=== PATIENT | male | born 1995 | race Caucasian/White ===

== ENCOUNTER 2019-08-14 20:30 | Inpatient (IN) | payer SELFPAY ==
[2019-08-14] VITALS (20 sets, daily range): BP systolic 99–135; BP diastolic 51–87; PULSE 67–88; RESP 12–21; TEMP 36–36.1; O2SAT 98–100; BMI 19.3
--- NOTE | 2019-08-14 20:39 | ED_ITS ---
Entered by Melody Ron, acting as scribe for Susy Cardenas Jenn Aug 14, 2019 20:30 HPI - Overdose General: Chief Complaint: Overdose Stated Complaint: OD Time Seen by Provider: 08/14/19 20:35 Source: family and EMS Mode of arrival: EMS Limitations: other (pt unresponsive ) History of Present Illness: HPI Narrative: 24 y/o male presents to the ED post overdose. Pt reprtedly took 10-20 Baclofen and and unknown amount of ETOH ( at least 5th of Vodka). Pt had seizure-like activity upon [place] [facility] Pt has been unresponsive since EMS arrived on scene. This happened after he got into an argument with his ex-girlfriend. This was intentional and appears to be an attempt to harm/end his life. MD complaint: intentional overdose Timing confirmed by: family member : Intent: other (suspected suicide attempt) How Overdose Was Discovered: family/friend present at time Context: Intentional Overdose: relationship problems Associated symptoms: lethargy and seizure Treatments Prior to Arrival: other (zofran) Review of Systems General: Reports: ROS unobtainable due to mental status and other (see HPI) Physical Exam Const: OTHER: Patient is lethargic and unresponsive HENMT: COMMON NORMALS: normocephalic, head/scalp atraumatic, external ears normal, EAC's normal, external nose normal and moist oral mucous membranes HEAD & SCALP: normal to inspection, normocephalic and atraumatic FACE & SINUS: normal facial exam and face symmetric NOSE: external nose normal and nares normal EXTERNAL EAR: Yes external ears normal EXTERNAL AUDITORY CANAL: EAC's normal MOUTH: oral and palatal mucosa normal and tongue normal Neck/C-Spine: COMMON NORMALS: full ROM, no lymphadenopathy, supple, no meningeal signs and no JVD GENERAL: Yes normal visual inspection and Yes trachea midline CERVICAL SPINE: Yes cervical ROM normal Chest: COMMONS NORMALS: inspection of chest normal and palpation of chest normal Resp: OTHER: Decreased respiratory effort. No cyanosis. Lung sounds clear. Cardio: COMMON NORMALS: no JVD, regular rate, regular rhythm, S1 normal heart sound, S2 normal heart sound, no gallops, no clicks, no murmurs and no rub JUGULAR VENOUS DISTENTION: no JVD RATE: regular rate RHYTHM: regular rhythm HEART SOUNDS: S1 normal and S2 normal GI: COMMON NORMALS: soft to palpation, non-tender, no hepatosplenomegaly and no masses INSPECTION: Yes normal to inspection PALPATION: Yes soft and Yes no hepatosplenomegaly : COMMON NORMALS: Yes no CVA tenderness BLADDER/KIDNEY EXAM: Yes no CVA tenderness Back/Pelvis: COMMON NORMALS: no CVA tenderness, thoracic and lumbar spine normal to inspection, no thoracic nor lumbar tenderness and thoraco-lumbar ROM n ormal Extremity: COMMON NORMALS: normal to inspection, full ROM, normal capillary refill, no joint enlargement, no clubbing, cyanosis or edema and no calf tenderness Neuro: RUDY COMA SCALE: document GCS findings Cantrall coma scale eye opening: Spontaneous Cantrall coma scale verbal response: None Cantrall coma scale motor response: None Cantrall coma scale total score: 6 MENINGEAL SIGNS: Yes no meningeal signs Skin: COMMON NORMALS: no rashes or lesions noted, skin turgor normal, no yocasta dice, no petechiae and no mottling GENERAL SKIN EXAM: no rashes or lesions noted and turgor normal Procedures Intubation Time out performed: Yes sedative: Etomidate Mg Given: 20 paralytic: Succinylcholine Mg Given: 150 Laryngoscope: Chanell ET Tube Size: 8 ET Tube Uncuffed: Yes Tube Secured Location: lips Tube Placement Confirmation: visualized tube passing through cords, equal breath sounds bilaterally, no breath sounds over epigastrium and confirmation by capnometry Patient Tolerated Procedure: well Intubation Complications: none Course Vital Signs: Vital signs: Vital Signs Temperature 96.8 F L 08/14/19 20:34 Pulse Rate 70 08/14/19 22:29 Respiratory Rate 14 08/14/19 22:29 Blood Pressure 108/58 08/14/19 22:29 Pulse Oximetry 98 08/14/19 22:29 MDM - Overdose MDM Narrative: Medical decision making narrative: The case was reviewed with poison control and they state the patient may have severe respiratory and neurologic depression for some time. They recommend admission to ICU. I have reviewed the case in full with Dr. Clifton who is in agreement. Lab Data: Attestation: I reviewed the patient's lab results. Labs: Lab Results 08/14/19 08/14/19 08/14/19 Range/Units 20:41 20:41 20:41 WBC 7.8 (4.0-10.0) 10^3/ uL RBC 4.84 (4.1-5.3) 10^6/u L Hgb 15.3 (11.7-16.6) g/dL Hct 44.0 (42.0-52.0) % MCV 90.9 (80-94) fL MCH 31.6 (28.0-34.0) pg MCHC 34.8 (30.0-36.0) g/dL RDW 11.1 L (12.1-15.1) % Plt Count 194 (130-400) 10^3/c mm MPV 9.3 (7.4-10.4) fL Neut % (Auto) 65.4 % Lymph % (Auto) 25.9 % [place] % (Auto) 7.1 % Eos % (Auto) 0.8 % Baso % (Auto) 0.5 % Neut # (Auto) 5.1 (1.8-7.7) 10^3/u L Lymph # (Auto) 2.0 (0.8-4.8) 10^3/u L [place] # (Auto) 0.6 (0.2-0.9) 10^3/u L Eos # (Auto) 0.1 (0.0-0.8) 10^3/u L Baso # (Auto) 0.0 (0.0-0.1) 10^3/u L Nucleated RBC % (a uto) 0 % Nucleated RBCs # 0.0 /100WBC PT 13.90 H (10.5-13.3) SECO NDS INR 1.04 (0.8-1.2) APTT 31.3 (23.9-36.7) SECO NDS Sodium 141 (136-145) mmol/L Potassium 3.9 (3.5-5.1) mmol/L Chloride 104 (98-107) mmol/L Carbon Dioxide 23 (22-29) mmol/L Anion Gap 17.9 (5-19) BUN 17 (6-20) mg/dL Creatinine 1.0 (0.7-1.2) mg/dL GFR Calculation 93.4 (90-130) mL/min Glucose 92 (74-109) mg/dL Calcium 10.0 (8.6-10.0) mg/Dl Magnesium 2.3 (1.7-2.3) mg/dL Total Bilirubin 1.1 (0.15-1.2) mg/dL AST 22 (0-40) U/L ALT 12 (0-41) U/L Alkaline Phosphata se 48 (40-130) IU/L Creatine Kinase 164 (39-308) U/L Total Protein 7.6 (6.6-8.7) g/dL Albumin 5.1 (3.5-5.2) g/dL Globulin 2.5 (1.3-4.6) g/dL Urine Color (Yellow) Urine Appearance (CLEAR) Urine pH (5-7) Ur Specific Gravit y (1.005-1.030) Urine Protein (Negative) Urine Glucose (UA) (Normal) Urine Ketones (Negative) Urine Occult Blood (Negative) Urine Nitrate (Negative) Urine Bilirubin (NEGATIVE) Urine Urobilinogen (Negative) mg/dL Ur Leukocyte Magdalena ase (Negative) Urine RBC (0-2) /hpf Urine WBC (0-5) /hpf Ur Squamous Epith Cells (0-5) Ur Transition Epit h Cell /hpf Urine Bacteria (NONE) Urine Mucus Salicylates < 0.3 L (3-10) mg/dL Urine Opiates Scre en (Negative) ng/mL Acetaminophen < 5.0 L (10-30) ug/mL Ur Barbiturates Sc reen (Negative) ng/mL Ur Phencyclidine S crn (Negative) ng/mL Ur Amphetamines Sc reen (Negative) ng/mL U Benzodiazepines Scrn (Negative) ng/mL Urine Cocaine Scre en (Negative) ng/mL U Marijuana (THC) Screen (Negative) ng/mL Ethyl Alcohol 171 H (0-10) mg/dL 08/14/19 08/14/19 Range/Units 21:01 21:01 WBC (4.0-10.0) 10^3/ uL RBC (4.1-5.3) 10^6/u L Hgb (11.7-16.6) g/dL Hct (42.0-52.0) % MCV (80-94) fL MCH (28.0-34.0) pg MCHC (30.0-36.0) g/dL RDW (12.1-15.1) % Plt Count (130-400) 10^3/c mm MPV (7.4-10.4) fL Neut % (Auto) % Lymph % (Auto) % [place] % (Auto) % Eos % (Auto) % Baso % (Auto) % Neut # (Auto) (1.8-7.7) 10^3/u L Lymph # (Auto) (0.8-4.8) 10^3/u L [place] # (Auto) (0.2-0.9) 10^3/u L Eos # (Auto) (0.0-0.8) 10^3/u L Baso # (Auto) (0.0-0.1) 10^3/u L Nucleated RBC % (a uto) % Nucleated RBCs # /100WBC PT (10.5-13.3) SECO NDS INR (0.8-1.2) APTT (23.9-36.7) SECO NDS Sodium (136-145) mmol/L Potassium (3.5-5.1) mmol/L Chloride (98-107) mmol/L Carbon Dioxide (22-29) mmol/L Anion Gap (5-19) BUN (6-20) mg/dL Creatinine (0.7-1.2) mg/dL GFR Calculation (90-130) mL/min Glucose (74-109) mg/dL Calcium (8.6-10.0) mg/Dl Magnesium (1.7-2.3) mg/dL Total Bilirubin (0.15-1.2) mg/dL AST (0-40) U/L ALT (0-41) U/L Alkaline Phosphata se (40-130) IU/L Creatine Kinase (39-308) U/L Total Protein (6.6-8.7) g/dL Albumin (3.5-5.2) g/dL Globulin (1.3-4.6) g/dL Urine Color Yellow (Yellow) Urine Appearance Clear (CLEAR) Urine pH 5 (5-7) Ur Specific Gravit y 1.015 (1.005-1.030) Urine Protein Neg (Negative) Urine Glucose (UA) Norm (Normal) Urine Ketones 1+ H (Negative) Urine Occult Blood Neg (Negative) Urine Nitrate Negative (Negative) Urine Bilirubin Neg (NEGATIVE) Urine Urobilinogen Norm (Negative) mg/dL Ur Leukocyte Magdalena ase Negative (Negative) Urine RBC None (0-2) /hpf Urine WBC Rare (0-5) /hpf Ur Squamous Epith Cells None (0-5) Ur Transition Epit h Cell 0-4 /hpf Urine Bacteria Trace (NONE) Urine Mucus 1+ Salicylates (3-10) mg/dL Urine Opiates Scre en Negative (Negative) ng/mL Acetaminophen (10-30) ug/mL Ur Barbiturates Sc reen Negative (Negative) ng/mL Ur Phencyclidine S crn Negative (Negative) ng/mL Ur Amphetamines Sc reen Negative (Negative) ng/mL U Benzodiazepines Scrn Negative (Negative) ng/mL Urine Cocaine Scre en Negative (Negative) ng/mL U Marijuana (THC) Screen Negative (Negative) ng/mL Ethyl Alcohol (0-10) mg/dL Imaging Data^: CXR: My impression: No acute infiltrates or pneumothorax. ET tube and NG tube with appropriate placement. Critical Care Time Critical Care Time: Critical Care Time: Yes Total Critical Care Time: 30 Attestation: Critical care time is exclusive of billable procedures. Critical care time included consultation with inpatient admission team, poison control and with family. Critical care time also included evaluating and making decisions from laboratory and vital sign information. Discharge Plan Discharge Patient Disposition: Admitted As Inpatient Admit Provider: Rinku Nguyen Condition: Stable Discharge Date/Time: 08/14/19 22:30 Coding Level of Care Code ED Boat Hop for Oumar Cuevas The documentation recorded by the Asaf dale Ashley, accurately reflects the service I personally performed and the decisions made by Theresa cruz Eli N Aug 14, 2019 20:30
--- NOTE | 2019-08-14 20:47 | XR_ITS ---
WS: [id number] CHEST XRAY TECHNIQUE: Portable chest. CLINICAL INFORMATION: cough COMPARISON: None. FINDINGS: Endotracheal tube with tip 4.2 cm above the astrid. Enteric tube tip in stomach. Heart: Normal cardiac silhouette. Lungs: Lungs are clear. No consolidation or pleural effusion. Bones: Normal visualized bony structures. XR/XR chest 1V portable [id number] IMPRESSION: 1. Endotracheal tube with tip 4.2 cm above the astrid. 2. Enteric tube with tip in stomach. 3. No acute pulmonary infiltrates.
--- NOTE | 2019-08-14 20:47 | CTR_ITS ---
PROCEDURE INFORMATION: Exam: CT Head Without Contrast Exam date and time: 08/14/2019 8:55 PM Age: 24 years old Clinical indication: Other: Od; Additional info: Spears/ams TECHNIQUE: Imaging protocol: Computed tomography of the head without contrast. Total DLP: 870.27 mGy-cm Radiation optimization: All CT scans at this facility use at least one of these dose optimization techniques: automated exposure control; mA and/or kV adjustment per patient size (includes targeted exams where dose is matched to clinical indication); or iterative reconstruction. COMPARISON: CT head wo con* [id number] 01/22/2016 7:23 PM FINDINGS: Brain: Normal. No hemorrhage. Unremarkable white matter. No mass effect. Ventricles: Normal. No ventriculomegaly. Bones/joints: Unremarkable. No acute fracture. Sinuses: Visualized sinuses are unremarkable. No fluid levels. Mastoid air cells: Visualized mastoid air cells are well aerated. Soft tissues: Unremarkable. CT/CT head wo con* [id number] IMPRESSION: Negative for intracranial hemorrhage or mass effect. Radiation Dose CTDIVOL = (mGy): DLP = 870.27 (mGy-cm)
[2019-08-14] MEDS: succinylcholine 20 mg/mL SDV 10mL 150 MG IV (20:52)
[2019-08-14] MEDS: LORazepam 2 mg/mL INJ 1 mL (20:54)
[2019-08-14] MEDS: sodium chloride 0.9% 1,000 ML 999 ML IV ×2 (20:55→22:22)
[2019-08-14] MEDS: propofol 1,000 MG/100 ML INJ 5 MG (20:55)
[2019-08-14 21:05] LABS: Basophils % 0.5 %; Eosinophils # 0.1 10^3/uL (0.0-0.8); Eosinophils % 0.8 %; Hemoglobin 15.3 g/dL (11.7-16.6); Lymphocytes % 25.9 %; Mean Corpuscular HGB Conc 34.8 g/dL (30.0-36.0); Mean Corpuscular Hemoglobin 31.6 pg (28.0-34.0); Mean Corpuscular Volume 90.9 fL (80-94); Mean Platelet Volume 9.3 fL (7.4-10.4); Monocytes # 0.6 10^3/uL (0.2-0.9); Monocytes % 7.1 %; Neutrophils # 5.1 10^3/uL (1.8-7.7); Neutrophils % 65.4 %; Nucleated Red Blood Cells % 0 %; Platelet Count 194 10^3/cmm (130-400); Red Blood Count 4.84 10^6/uL (4.1-5.3); Red Cell Distribution Width 11.1 % (12.1-15.1); White Blood Count 7.8 10^3/uL (4.0-10.0)
[2019-08-14 21:14] LABS: INR 1.04 (0.8-1.2)
[2019-08-14 21:15] LABS: Alanine Aminotransferase 12 U/L (0-41); Albumin Level 5.1 g/dL (3.5-5.2); Alcohol Level 171 mg/dL (0-10); Alkaline Phosphatase 48 IU/L (40-130); Anion Gap 17.9 (5-19); Blood Urea Nitrogen 17 mg/dL (6-20); Carbon Dioxide 23 mmol/L (22-29); Chloride 104 mmol/L (98-107); Creatine Phosphokinase 164 U/L (39-308); Globulin 2.5 g/dL (1.3-4.6); Glomerular Filtration Rate 93.4 mL/min (90-130); Glucose 92 mg/dL (74-109); Magnesium 2.3 mg/dL (1.7-2.3); Partial Thromboplastin Time 31.3 SECONDS (23.9-36.7); Potassium 3.9 mmol/L (3.5-5.1); Sodium 141 mmol/L (136-145); Total Bilirubin 1.1 mg/dL (0.15-1.2); Total Protein 7.6 g/dL (6.6-8.7)
[2019-08-14 21:20] LABS: Acetaminophen < 5.0 ug/mL (10-30); Salicylate < 0.3 mg/dL (3-10)
[2019-08-14 21:21] LABS: Aspartate Amino Transferase 22 U/L (0-40)
[2019-08-14 21:47] LABS: Blood Urine Neg (Negative); Glucose Urine UA Norm (Normal); Ketones Urine 1+ (Negative); Protein Urine Neg (Negative); Specific Gravity, Urine 1.015 (1.005-1.030); Urine Appearance Clear (CLEAR); Urine Color Yellow (Yellow); pH Urine 5 (5-7)
[2019-08-14 21:48] LABS: Add Urine Culture? No; Bacteria Urine TRACE; Bilirubin Urine Neg (NEGATIVE); Leukocyte Esterase Urine Negative (Negative); Mucus Urine 1+; Nitrate Urine Negative (Negative); Transitional Epi Cells Urine 0-4 /hpf; Urobilinogen Urine Norm (Negative); WBC Urine RARE /hpf (0-5)
[2019-08-14 21:57] LABS: Amphetamines Screen Urine Negative (Negative); Barbiturates Screen Urine Negative (Negative); Benzodiazepines Screen Urine Negative (Negative); Cocaine Screen Urine Negative (Negative); Opiate Screen Urine Negative (Negative); PCP Screen Urine Negative (Negative); THC Screen Urine Negative (Negative)
--- NOTE | 2019-08-14 23:46 | PM.HP ---
Providers/Chief Complaint Admitting Physician: Rinku Nguyen MD Chief Complaint: OD, 96 HR HOLD History of Present Illness Benito Gr is a 24 year old male who does not carry any significant past medical history was brought in by EMS, was intubated in ER because of his GCS of 6. 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 That time EMS was called. Mother is stating that he was never suicidal, she is not sure if he was depressed, however his grandmother has few weeks ago and on social media he has been posting notes about his difficult life. He also posted a picture of vodka on [employer]. In ER he was intubated, alcohol level 171, baclofen tablets were counted by the family 20 are missing from the bottle it was 10 mg baclofen tablet, poison control recommended conservative management for now Review of Systems General: Reports: ROS unobtainable due to endotracheal tube Medications/Allergies Home Medications Medication Instructions Recorded Confirmed Last Taken Type No Known Home Medications 08/14/19 08/14/19 Unknown History Allergies Allergy/AdvReac Type Severity Reaction Status Date / Time No Known Allergies Allergy Verified 08/14/19 21:24 PFSH Acute PFSH: Statuses (acute, chronic, etc) shown below reflect problem list status as previously entered and may not be historically accurate Medical History (Updated 08/14/19 @ 23:54 by Rinku Nguyen MD) Distal radial fracture (Acute) No pertinent past medical history (Acute) Surgical History (Updated 08/14/19 @ 23:51 by Rinku Nguyen MD) H/O adenoidectomy (Acute) History of tonsillectomy (Acute) Family History (Updated 08/14/19 @ 23:51 by Rinku Nguyen MD) Denies family history of CAD (coronary artery disease) Bleeding disorder Cancer Stroke Social History (Updated 08/14/19 @ 23:52 by Rinku Nguyen MD) Smoking and tobacco status: current some day smoker Alcohol intake: current Alcohol use comment: Drinks vodka Substance/Drug Use: never Housing: House Vitals/I&O/Wt Last Vital Signs Temp 97.0 F L 08/14/19 22:30 Pulse 67 08/14/19 23:15 Resp 14 08/14/19 23:16 BP 105/52 08/14/19 23:15 Pulse Ox 98 08/14/19 23:15 08/14/19 08/14/19 08/15/19 14:59 22:59 06:59 Intake Total 1000 / 1000 Balance 1000 / 1000 Weight last 48 hrs Weight 61.235 kg Physical Exam Narrative: EXAM NARRATIVE: Patient is intubated and sedated with propofol and fentanyl CMV ventilator PEEP of 8, tidal volume 450, FiO2 40% Skin exam is not showing any signs of ischemia gangrene or ulcer No signs of edema or heart failure S1-S2 no murmur or JVD Abdomen soft, bowel sounds present Neurological exam not able to be obtained Lungs have assisted breath sounds bilaterally Pupils are pinpoint nonresponsive Montez catheter draining clear yellow urine No gross abnormality of extremities Urinary Catheter Management^: Montez Latex Free: Cath Placed During This Visit: no Montez Latex: Cath Placed During This Visit: no Data : 08/14/19 20:41 08/14/19 20:41 A&P Assessment and plan (1) Respiratory failure: Status: Acute Code(s): J96.90 - Respiratory failure, unspecified, unspecified whether with hypoxia or hypercapnia (2) Unresponsive: Status: Acute Code(s): R41.89 - Other symptoms and signs involving cognitive functions and awareness (3) Depression: Status: Acute Code(s): F32.9 - Major depressive disorder, single episode, unspecified (4) Alcohol abuse: Status: Acute Code(s): F10.10 - Alcohol abuse, uncomplicated (5) Drug overdose: Status: Acute Code(s): T50.901A - Poisoning by unspecified drugs, medicaments and biological substances, accidental (unintentional), initial encounter Additional A&P Information Respiratory failure acute in onset secondary to drug overdose with concomitant use of alcohol At this point we are not sure whether it was an suicidal attempt or not Conservative management Patient has taken baclofen along vodka Poison control recommended conservative management Currently intubated and sedated No electrolyte abnormalities [facility] protocol Weaning trial in the morning 96-hour hold for possible suicidal attempt He will need psych evaluation once he is stable DVT prophylaxis: Lovenox GI prophylaxis: Protonix Full code Attestations Medical Necessity Statement*: Anticipating stay to cross more than 2 midnights because of drug overdose and current respiratory failure he is currently intubated needs ICU care Time Spent in Patient Care: (>than 50% of time spent in counselling and/or direct pt care on unit). 50 Coding Level of Care Code Acute Bar And Filler Assembler for Oumar Cuevas Diagnoses Respiratory failure J96.90 Unresponsive R41.89 Depression F32.9 Alcohol abuse F10.10 Drug overdose T50.901A
[2019-08-15] VITALS (29 sets, daily range): BP systolic 102–119; BP diastolic 46–76; PULSE 71–101; RESP 14–20; TEMP 36.4–37.5; O2SAT 96–100
[2019-08-15 00:23] LABS: ABG PCO2 40.8 mmHg (35-45); Arterial Blood Gas Hematocrit 45.3 % (42-52); Base Excess ABG -6.4 mmol/L (-2.0-2.0); Blood Gas Sample Site Brachial, left; Blood Gas Sample Type Arterial; Blood Gas Tidal Volume 0.45; HCO3 ABG 19.8 mmol/L (22-26); Oxygen Device VENT
[2019-08-15] MEDS: enoxaparin 40 mg/0.4 mL Syringe SUBCUT ×2 (00:32→23:54)
[2019-08-15 04:13] LABS: Alanine Aminotransferase 18 U/L (0-41); Albumin Level 4.2 g/dL (3.5-5.2); Alkaline Phosphatase 46 IU/L (40-130); Anion Gap 22.4 (5-19); Aspartate Amino Transferase 28 U/L (0-40); Blood Urea Nitrogen 23 mg/dL (6-20); Calcium 9.1 mg/Dl (8.6-10.0); Carbon Dioxide 15 mmol/L (22-29); Chloride 107 mmol/L (98-107); Globulin 2.1 g/dL (1.3-4.6); Glomerular Filtration Rate 120.9 mL/min (90-130); Glucose 58 mg/dL (74-109); Potassium 4.4 mmol/L (3.5-5.1); Sodium 140 mmol/L (136-145); Total Bilirubin 1.4 mg/dL (0.15-1.2); Total Protein 6.3 g/dL (6.6-8.7)
[2019-08-15 04:39] LABS: Hematocrit 41.2 % (42.0-52.0); Hemoglobin 13.6 g/dL (11.7-16.6); Red Blood Count 4.28 10^6/uL (4.1-5.3); White Blood Count 10.3 10^3/uL (4.0-10.0)
[2019-08-15 04:40] LABS: Mean Corpuscular Hemoglobin 31.8 pg (28.0-34.0); Mean Corpuscular Volume 96.3 fL (80-94)
[2019-08-15 04:41] LABS: Mean Platelet Volume 9.6 fL (7.4-10.4); Platelet Count 155 10^3/cmm (130-400); Red Cell Distribution Width 11.4 % (12.1-15.1)
[2019-08-15 04:42] LABS: Basophils % 0.2 %; Eosinophils % 0.1 %; Lymphocytes # 0.8 10^3/uL (0.8-4.8); Lymphocytes % 7.5 %; Monocytes # 0.7 10^3/uL (0.2-0.9); Monocytes % 7.2 %; Neutrophils # 8.8 10^3/uL (1.8-7.7); Neutrophils % 84.7 %
[2019-08-15 04:43] LABS: Nucleated Red Blood Cells % 0 %
[2019-08-15 05:17] LABS: Glucose Point of Care 49 mg/dL (70-110)
[2019-08-15] MEDS: dextrose 50% syringe 50 mL IVP (05:18)
[2019-08-15 05:41] LABS: Glucose Point of Care 150 mg/dL (70-110)
[2019-08-15 05:52] LABS: ABG PCO2 43.5 mmHg (35-45); ABG PH Result 7.25 (7.35-7.45); Base Excess ABG -7.8 mmol/L (-2.0-2.0)
[2019-08-15 05:53] LABS: Arterial Blood Gas Hematocrit 43.1 % (42-52); Blood Gas Vent Mode cmv; HCO3 ABG 19.2 mmol/L (22-26)
[2019-08-15 06:20] LABS: Blood Gas Allen Test Pos; Blood Gas Sample Site Heel, right; Blood Gas Sample Type Arterial; Blood Gas Tidal Volume 0.45; Oxygen Device VENT
[2019-08-15] MEDS: propofol 1,000 MG/100 ML INJ 11 MG IV (07:40)
[2019-08-15] MEDS: chlordiazePOXIDE 10 mg Capsule PO ×3 (08:03→19:43)
[2019-08-15] MEDS: multivitamin therapeutic Tablet 1 TAB PO (08:03)
[2019-08-15] MEDS: folic acid 1 mg Tablet PO (08:03)
[2019-08-15] MEDS: pantoprazole 40 mg SDV IVP (08:04)
[2019-08-15] MEDS: thiamine 100 mg Tablet PO (08:05)
--- NOTE | 2019-08-15 09:50 | PC.CHAP ---
Pastoral Care Encounter/Spiritual Assessment Type of Contact [] Declined tooling engineering tech visit [] Patient/Family/Request visit [] Outpatient visit [] Follow-up visit [] Physician referral [] Code/Alert [] Routine visit [] Staff referral [] Actively dying [] Patient sleeping [] Family support [] [] Out of room [] Palliative care [] [] Receiving care in room [] Pre-surgical visit [] Trauma [] Long length of stay [] ICU visit [] Other: Relational/Emotional Strength [] Patient feels connected with others/family/visitors/staff [] Distress [] Loneliness/isolation [] Abandonment Spirituality of Patient [] Person of Ame [] Attends Sikh of their Ame [] Believes in Prayer [] Reads Bible or Catholic materials [] There are Spiritual issues to be addressed Acid Patroller Interventions [] Prayer [] Active listening [] Non-anxious presence [] Spiritual/emotional support [] Crisis/trauma care [] Spiritual counseling [] Bereavement support [] Provided bereavement packet [] Provided Bible/devotional materials [] Provided toy/stuffed animal, coloring book to patient or family member [] Completed spiritual assessment [] Provided Communion [] Anointing/[place] [] Salvation [] Other: Impact on Illness or Injury [] Angry [] Fearful [] Anxious [] Often cries [] Exhaustion [] Unable to work [] Unable to attend tenriism [] Unable to walk/stand [] Unable to read [] Unable to drive [] Unable to eat/drink [] Unable to sleep [] Unable to be with family [x] Other: Patient is in induced sleep. Summary Letona entered room with Patient, and prayed with him while he slept. Time spent with patient 5min
--- NOTE | 2019-08-15 11:41 | P.PN_ITS ---
Vitals/I&O/Wt Last Vital Signs Temp 99.4 F 08/15/19 10:00 Pulse 88 08/15/19 11:00 Resp 14 08/15/19 10:57 BP 119/59 08/15/19 11:00 Pulse Ox 100 08/15/19 11:00 08/14/19 08/15/19 08/15/19 22:59 06:59 14:59 Intake Total 1000 / 1000 110 / 1110 20.167 / 20.167 Output Total 100 / 100 Balance 1000 / 1000 10 / 1010 20.167 / 20.167 Weight last 48 hrs Weight 61.235 kg Physical Exam 2 Const: OTHER: Patient is currently intubated, on minimal sedation, does respond to stimulus, does withdraw from pain, does spontaneously open his eyes HENMT: COMMON NORMALS: normocephalic HEAD & SCALP: normocephalic Eye: COMMON NORMALS: PERRL PUPIL: Yes PERRL Neck/C-Spine: COMMON NORMALS: no lymphadenopathy and no JVD Lymph: LYMPHATIC: no lymphadenopathy noted Chest: COMMONS NORMALS: inspection of chest normal Resp: COMMON NORMALS: clear to auscultation bilaterally AUSCULTATION: clear to auscultation bilaterally Cardio: COMMON NORMALS: no JVD, regular rate, regular rhythm, S1 normal heart sound and S2 normal heart sound RATE: regular rate RHYTHM: regular rhythm HEART SOUNDS: S1 normal and S2 normal GI: COMMON NORMALS: normal to inspection, nondistended, normoactive bowel sounds, soft to palpation, non-tender and no hepatosplenomegaly PALPATION: Yes soft and Yes no hepatosplenomegaly Extremity: COMMON NORMALS: normal to inspection, full ROM, normal capillary refill and no clubbing, cyanosis or edema Neuro: OTHER: Currently intubated, sedated, does respond to painful stimuli, does withdraw, does open eyes to to stimulus Urinary Catheter Management^: Montez Latex Free: Cath Placed During This Visit: no Montez Latex: Cath Placed During This Visit: no Data : 08/15/19 03:26 08/15/19 03:26 A&P Assessment and plan (1) Respiratory failure: -Secondary to alcohol and baclofen - Poison control has already been contacted -Patient does have a lot of bilious secretions from OG tube, possible aspiration, no fevers, no white blood cell count Plan: -Continue ventilation, minimize PEEP, minimize FiO2 -Lovenox for DVT prophylaxis -Protonix for GI prophylaxis -Continue propofol -Librium to prevent alcohol withdrawal -Zosyn for possible aspiration pneumonia -Continue telemetry monitoring Status: Acute Code(s): J96.90 - Respiratory failure, unspecified, unspecified whether with hypoxia or hypercapnia (2) Unresponsive: Status: Acute Code(s): R41.89 - Other symptoms and signs involving cognitive functions and awareness (3) Depression: -96-hour hold for intentional drug overdose Status: Acute Code(s): F32.9 - Major depressive disorder, single episode, unspecified (4) Alcohol abuse: Status: Acute Code(s): F10.10 - Alcohol abuse, uncomplicated (5) Drug overdose: Status: Acute Code(s): T50.901A - Poisoning by unspecified drugs, medicaments and biological substances, accidental (unintentional), initial encounter Additional A&P Information R Full code Attestations Medical Necessity Statement*: She requires continued hospitalization, for intentional drug overdose, alcohol overdose, possible suicide attempt Coding Level of Care Code Acute Director Of Software Development for Oumar Cuevas Diagnoses Respiratory failure J96.90 Unresponsive R41.89 Depression F32.9 Alcohol abuse F10.10 Drug overdose T50.901A
[2019-08-15] MEDS: sodium chloride 0.9% 1,000 ML 50 ML IV (12:30)
[2019-08-15] MEDS: piperacillin-tazobactam 3.375 GM in sodium chloride 0.9% (plus) 50 ML IV ×2 (14:37→21:05)
--- NOTE | 2019-08-15 17:12 | PC.RESP ---
PT EXBUTATED TO R/A. SAT 97% HR 104 0 RESPIRATORY DISTRES NOTED.
[2019-08-16] VITALS (31 sets, daily range): BP systolic 107–128; BP diastolic 50–88; PULSE 54–88; RESP 14–25; TEMP 37.2; O2SAT 97–100
[2019-08-16] MEDS: chlordiazePOXIDE 10 mg Capsule PO (02:09)
[2019-08-16 04:46] LABS: Basophils % 0.2 %; Eosinophils # 0.1 10^3/uL (0.0-0.8); Eosinophils % 0.9 %; Hemoglobin 13.4 g/dL (11.7-16.6); Lymphocytes # 1.2 10^3/uL (0.8-4.8); Lymphocytes % 13.5 %; Mean Corpuscular HGB Conc 34.4 g/dL (30.0-36.0); Mean Corpuscular Hemoglobin 31.8 pg (28.0-34.0); Mean Corpuscular Volume 92.4 fL (80-94); Mean Platelet Volume 9.8 fL (7.4-10.4); Monocytes # 0.8 10^3/uL (0.2-0.9); Monocytes % 9.6 %; Neutrophils # 6.5 10^3/uL (1.8-7.7); Neutrophils % 75.6 %; Nucleated Red Blood Cells % 0 %; Platelet Count 136 10^3/cmm (130-400); Red Blood Count 4.22 10^6/uL (4.1-5.3); Red Cell Distribution Width 10.9 % (12.1-15.1); White Blood Count 8.7 10^3/uL (4.0-10.0)
[2019-08-16 04:59] LABS: Alanine Aminotransferase 19 U/L (0-41); Albumin Level 4.1 g/dL (3.5-5.2); Alkaline Phosphatase 47 IU/L (40-130); Anion Gap 18.1 (5-19); Aspartate Amino Transferase 24 U/L (0-40); Blood Urea Nitrogen 14 mg/dL (6-20); C Reactive Protein 36.7 mg/L (0.0-4.9); Carbon Dioxide 20 mmol/L (22-29); Chloride 104 mmol/L (98-107); Globulin 2.1 g/dL (1.3-4.6); Glomerular Filtration Rate 105.5 mL/min (90-130); Glucose 75 mg/dL (74-109); Magnesium 2.2 mg/dL (1.7-2.3); Phosphorus 2.6 mg/dL (2.5-4.5); Potassium 4.1 mmol/L (3.5-5.1); Sodium 138 mmol/L (136-145); Total Bilirubin 1.9 mg/dL (0.15-1.2); Total Protein 6.2 g/dL (6.6-8.7)
[2019-08-16 05:01] LABS: ABG PCO2 39.1 mmHg (35-45); ABG PH Result 7.34 (7.35-7.45); Arterial Blood Gas Hematocrit 43.2 % (42-52); Base Excess ABG -4.3 mmol/L (-2.0-2.0); Blood Gas Sample Site Brachial, left; Blood Gas Sample Type Arterial; HCO3 ABG 21.1 mmol/L (22-26); Oxygen Device ROOM AIR; PO2 ABG 89.4 mmHg (80.0-100.0)
[2019-08-16 05:16] LABS: Procalcitonin 2.77 ng/mL (0-0.8)
[2019-08-16] MEDS: piperacillin-tazobactam 3.375 GM in sodium chloride 0.9% (plus) 50 ML IV (06:03)
--- NOTE | 2019-08-16 06:13 | PC.NURSE ---
SHIFT SUMMARY PT HAS BEEN RESTING WITH EYES CLOSED, RESPIRATIONS EVEN AND UNLABORED. PT REMAINS A LITTLE CONFUSED ON WHAT DAY AND WHERE HE IS. PT HAS HAD ADEQUATE URINE OUTPUT. PT LUNGS REMAIN CLEAR/DIMINISHED. PT HAS NOT SCORED ANY ON CIWA, AND PT HAS NOT HAD ANY WITHDRAWAL SYMPTOMS OR OUTBURSTS. PT HAS BEEN AFEBRILE.
--- NOTE | 2019-08-16 07:00 | XRR_ITS ---
PROCEDURE INFORMATION: Exam: XR Chest, 1 View Exam date and time: 08/16/2019 5:53 AM Age: 24 years old Clinical indication: Shortness of breath; Additional info: SOB TECHNIQUE: Imaging protocol: XR of the chest Views: 1 view. COMPARISON: CR XR chest 1V portable [id number] 08/14/2019 8:53 PM FINDINGS: Tubes, catheters and devices: Interval removal of previously visualized endotracheal and feeding tubes. Lungs: Hyperinflation and mild interstitial prominence. No acute airspace disease. Pleural space: No pleural effusion. Heart/Mediastinum: Normal configuration of the heart. Bones/joints: Unremarkable. XR/XR chest 1V portable [id number] IMPRESSION: Hyperinflation and mild interstitial prominence.
[2019-08-16] MEDS: thiamine 100 mg Tablet PO (08:37)
[2019-08-16] MEDS: multivitamin therapeutic Tablet 1 TAB PO (08:37)
[2019-08-16] MEDS: folic acid 1 mg Tablet PO (08:37)
--- NOTE | 2019-08-16 12:19 | PM.PSYCN ---
Providers/Reason for Consult Consulting Physican/Specialty*: Ron Ely MD Reason for Consult*: assess for imminent risk Attending Physician: Glen Patten MD Psych Consult HPI History of Present Illness The psychiatry service has been consult in to request an assessment regarding potential dangerousness to self or others by the patient who was brought in unresponsive. There is also the question of recommendations for further treatment after discharge. Brief history:Benito Gr is a 24 year old male who does not carry any significant past medical history was brought in by EMS, was intubated in ER because of his GCS of 6. 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 That time EMS was called. Mother is stating that he was never suicidal, she is not sure if he was depressed, however his grandmother has few weeks ago and on social media he has been posting notes about his difficult life. He also posted a picture of vodka on [employer] and states the problems began in May 2019 when he was assessed by a local physician for back pain. He was given a muscle relaxer to be used up to 4 times daily for his back pain. He says that typically, he uses it twice a day. However it is quite variable. He does not really like the medication because it makes him tired. This is specifically important because he operates heavy machinery at the [employer]. Patient admits that his memory is hazy for events leading up to his hospitalization. He said that he went home from work and he had taken one of his muscle relaxers area however he admits that sometimes he takes more than one. He cannot recall how many talk. However he specifically states that no time was he having any intent to harm himself or others. He was despondent over the recent of grandmother. There apparently was another of an older brother several years earlier. He had a bottle of vodka and decided to drink a little. That is the last thing he remembers. He denies any time having suicidal ideation. He denies symptoms of Depression. He has good hedonic capacity. Work is going well. He denies the presence of auditory of visual hallucinations. With regard to his alcohol intake, he does not feel that he has a problem. Was somewhat guarded and answers to questions became much more approximate in their form. He says I'm a fan of hard liquor. There is no history of legal problems or DUIs. He does not feel his alcohol has impaired his ability at work or caused him problems with employment or financial issues. No one is telling me him that he drinks too much. Other than this hospitalization, he does not feel that it causes him any medical problems. He did not feel it necessary that he go into a alcohol substance abuse program. Past psychiatric history: No history of admissions. He has never seen a psychiatrist before. He has never been in any mental health treatment before Family psychiatric history: Patient reports that no one within the family is being treated for mental health problems. Meds Current Medications: Current Medications Generic Name Dose Route Start Last Admin Trade Name Adam PRN Reason Stop Dose Admin Enoxaparin Sodium 40 mg 08/14/19 23:45 08/15/19 23:54 Lovenox SUBCUT 40 mg Q24H LAYLA Administration Folic Acid 1 mg 08/15/19 09:00 08/16/19 08:37 Folic Acid PO 1 mg DAILY LAYLA Administration Piperacillin Sod/T azobactam 50 mls @ 12.5 mls /hr 08/15/19 13:00 08/16/19 06:03 Sod 3.375 gm/ So dium Chloride IV 12.5 mls/hr Q8H LAYLA Administration Protocol Multivitamins Ther apeutic 1 tab 08/15/19 09:00 08/16/19 08:37 Multivitamin Tab PO 1 tab DAILY LAYLA Administration Thiamine Mononitra te 100 mg 08/15/19 09:00 08/16/19 08:37 Vitamin B-1 PO 100 mg DAILY LAYLA Administration PFSH NPU PFSH: Statuses (acute, chronic, etc) shown below reflect problem list status as previously entered and may not be historically accurate Medical History (Updated 08/14/19 @ 23:54 by Rinku Nguyen MD) Distal radial fracture (Acute) No pertinent past medical history (Acute) Surgical History (Updated 08/14/19 @ 23:51 by Rinku Nguyen MD) H/O adenoidectomy (Acute) History of tonsillectomy (Acute) Family History (Updated 08/14/19 @ 23:51 by Rinku Nguyen MD) Denies family history of CAD (coronary artery disease) Bleeding disorder Cancer Stroke Social History (Updated 08/14/19 @ 23:52 by Rinku Nguyen MD) Smoking and tobacco status: current some day smoker Alcohol intake: current Alcohol use comment: Drinks vodka Substance/Drug Use: never Housing: House Mental Status Exam MSE Comments: Discharge Mental Status Exam: Appearance: hygiene is good; no gross neurological deficits., gait is Not assessed; AIMS=0 Speech: Speech is of normal rate and rhythm and easily understood. Thought processes: Thought processes are abstract. Judgment is adequate for safety. Associations: intact Psychotic processes: There is no indication of guarding or paranoia. There is no attention to the internal stimuli. Auditory and visual hallucinations are denied. Judgment: Insight is fair. Problem solving skills are adequate for safety. Orientation: The patient is oriented to person, place time and situation. Memory: no deficits noted in immediate, intermediate, or remote spheres. Attention: The patient is alert and interpersonally engaged. Language: Verbalizations are coherent. Fund of knowledge: Fund of knowledge is adequate. Affect/Mood: Affect is consistent with a euthymic mood. denied suicidal ideation Affective range is appropriate. Psychosis: perception unimpaired except through cognitive distortion; reality testing intact. Vitals/I&O/Wt Last Vital Signs Temp 99.0 F 08/16/19 06:00 Pulse 82 08/16/19 12:15 Resp 16 08/16/19 12:15 BP 118/63 08/16/19 12:15 Pulse Ox 98 08/16/19 12:15 08/15/19 08/16/19 08/16/19 22:59 06:59 14:59 Intake Total 150 / 280.167 290 / 570.167 550 / 550 Output Total 700 / 700 400 / 1100 1200 / 1200 Balance -550 / -419.833 -110 / -529.833 -650 / -650 Weight last 48 hrs Weight 61.235 kg Physical Exam Urinary Catheter Management^: Montez Latex Free: Cath Placed During This Visit: no Montez Latex: Cath Placed During This Visit: no Data NPU Labs: Other Labs: Laboratory Tests 08/14/19 08/14/19 20:41 21:01 Urine Opiates Scre en Negative Ur Barbiturates Sc reen Negative Ur Phencyclidine S crn Negative Ur Amphetamines Sc reen Negative U Benzodiazepines Scrn Negative Urine Cocaine Scre en Negative U Marijuana (THC) Screen Negative Ethyl Alcohol 171 H Micro: Micro: Microbiology 08/14/19 23:43 Gram Stain - Final Sputum - Endotrac heal Tube Aspirate Sputum Culture - P reliminary Microbiology 08/14/19 23:43 Sputum - Endotracheal Tube Aspirate Gram Stain - Final 08/14/19 23:43 Sputum - Endotracheal Tube Aspirate Sputum Culture - Preliminary A&P Additional A&P Information Diagnosis: Alcohol intoxication?resolved Alcohol abuse disorder At this time, there is not an indication of Imminent risk to self or others. This was specifically not a suicide attempt. Patient is not clinically depressed. However he likely does have an alcohol abuse disorder. We reviewed availability of services at the [facility]. He said that he would make use of them if he felt that they were necessary. Attestations NPU Medical Necessity Statement*: Continuation of medical care is left to the discretion of the physician of record Coding Level of Care Code Acute Duct Cleaner for Oumar Cuevas
--- NOTE | 2019-08-16 13:14 | PC.NURSE ---
noon meal with good appetite at this time no distress noted
--- NOTE | 2019-08-16 13:28 | PM.PN ---
Subjective Subjective: Interval history: This morning patient is lying in bed, has no significant complaints, no fevers, no cough, no lightheadedness, no dizziness Patient states that he has been having a lot of hip pain, she took his father's baclofen, took 3 to 4 pills, during work, when he came home he drank three quarters of a bottle of vodka, and passed out Patient denies suicidal ideation, denies homicidal ideation, denies this being a suicide attempt. Patient does states that since the passing of his grandmother, whom he was very close with, he has been grieving, denies feeling down depressed and sad, does state that he is coping with the loss by drinking alcohol Vitals/I&O/Wt Last Vital Signs Temp 99.0 F 08/16/19 06:00 Pulse 82 08/16/19 12:15 Resp 16 08/16/19 12:15 BP 118/63 08/16/19 12:15 Pulse Ox 98 08/16/19 12:15 08/15/19 08/16/19 08/16/19 22:59 06:59 14:59 Intake Total 150 / 280.167 290 / 570.167 550 / 550 Output Total 700 / 700 400 / 1100 1200 / 1200 Balance -550 / -419.833 -110 / -529.833 -650 / -650 Weight last 48 hrs Weight 61.235 kg Physical Exam Const: COMMON NORMALS: no apparent distress and oriented x3 ORIENTATION/CONSCIOUSNESS: Yes awake, Yes oriented to person, Yes oriented to place and Yes oriented to time HENMT: COMMON NORMALS: normocephalic HEAD & SCALP: normocephalic Eye: COMMON NORMALS: PERRL PUPIL: Yes PERRL Neck/C-Spine: COMMON NORMALS: no lymphadenopathy and no JVD Lymph: LYMPHATIC: no lymphadenopathy noted Chest: COMMONS NORMALS: inspection of chest normal Resp: COMMON NORMALS: clear to auscultation bilaterally AUSCULTATION: clear to auscultation bilaterally Cardio: COMMON NORMALS: no JVD, regular rate, regular rhythm, S1 normal heart sound and S2 normal heart sound RATE: regular rate RHYTHM: regular rhythm HEART SOUNDS: S1 normal and S2 normal GI: COMMON NORMALS: normal to inspection, nondistended, normoactive bowel sounds, soft to palpation, non-tender and no hepatosplenomegaly PALPATION: Yes soft and Yes no hepatosplenomegaly Extremity: COMMON NORMALS: normal to inspection, full ROM, normal capillary refill and no clubbing, cyanosis or edema Neuro: COMMON NORMALS: oriented x3, CN's II-XII intact bilaterally, moves all extremities and no focal motor deficits SENSORIUM/ORIENTATION: Yes oriented to person, Yes oriented to place and Yes oriented to time Psych: COMMON NORMALS: mental status grossly normal, thought process normal, cooperative, denies hallucinations, denies homicidal ideation and denies suicidal ideation THOUGHT PROCESS: normal thought process ATTENTION/CONCENTRATION: Yes attention grossly intact and Yes concentration grossly intact MEMORY/COGNITION: Yes memory grossly intact and Yes cognition grossly intact INSIGHT: insight good JUDGEMENT: judgment good Urinary Catheter Management^: Montez Latex Free: Cath Placed During This Visit: no Montez Latex: Cath Placed During This Visit: no Data : 08/16/19 04:10 08/16/19 04:10 Micro: Microbiology 08/14/19 23:43 Gram Stain - Final Sputum - Endotracheal Tube Aspirate Sputum Culture - Preliminary A&P Assessment and plan (1) Respiratory failure: -Secondary to alcohol and baclofen - Poison control has already been contacted -Successfully extubated yesterday -Remains afebrile, normotensive Plan: -Continue ventilation, minimize PEEP, minimize FiO2 -Lovenox for DVT prophylaxis -Protonix for GI prophylaxis -Continue propofol -ciwa protocol -De-escalate antibiotics to Augmentin Status: Acute Code(s): J96.90 - Respiratory failure, unspecified, unspecified whether with hypoxia or hypercapnia (2) Unresponsive: Status: Acute Code(s): R41.89 - Other symptoms and signs involving cognitive functions and awareness (3) Depression: -96-hour hold for intentional drug overdose Status: Acute Code(s): F32.9 - Major depressive disorder, single episode, unspecified (4) Alcohol abuse: Status: Acute Code(s): F10.10 - Alcohol abuse, uncomplicated (5) Drug overdose: Status: Acute Code(s): T50.901A - Poisoning by unspecified drugs, medicaments and biological substances, accidental (unintentional), initial encounter Additional A&P Information R Full code Attestations Medical Necessity Statement*: Patient requires continued hospitalization, for acute respiratory failure second to alcohol and baclofen overdose Coding Level of Care Code Acute Financial Accounting Analyst for Chg Fwd Diagnoses Respiratory failure J96.90 Unresponsive R41.89 Depression F32.9 Alcohol abuse F10.10 Drug overdose T50.901D
--- NOTE | 2019-08-16 19:32 | PC.NURSE ---
MEDICATION WASTE 23 MLS OF FENTANYL WASTED. SANDY ROTH WITNESSED.
[2019-08-16] MEDS: enoxaparin 40 mg/0.4 mL Syringe SUBCUT (23:10)
[2019-08-17] VITALS (18 sets, daily range): BP systolic 94–123; BP diastolic 48–71; PULSE 41–75; RESP 12–20; TEMP 37.4; O2SAT 94–99
[2019-08-17 04:54] LABS: Basophils % 0.3 %; Eosinophils # 0.2 10^3/uL (0.0-0.8); Eosinophils % 3.1 %; Hematocrit 40.7 % (42.0-52.0); Hemoglobin 14.1 g/dL (11.7-16.6); Lymphocytes # 1.4 10^3/uL (0.8-4.8); Lymphocytes % 20.8 %; Mean Corpuscular HGB Conc 34.6 g/dL (30.0-36.0); Mean Corpuscular Hemoglobin 31.8 pg (28.0-34.0); Mean Corpuscular Volume 91.7 fL (80-94); Mean Platelet Volume 9.5 fL (7.4-10.4); Monocytes # 0.8 10^3/uL (0.2-0.9); Monocytes % 11.7 %; Neutrophils # 4.4 10^3/uL (1.8-7.7); Neutrophils % 63.8 %; Nucleated Red Blood Cells % 0 %; Platelet Count 151 10^3/cmm (130-400); Red Blood Count 4.44 10^6/uL (4.1-5.3); White Blood Count 6.9 10^3/uL (4.0-10.0)
[2019-08-17 05:06] LABS: Alanine Aminotransferase 18 U/L (0-41); Albumin Level 4.3 g/dL (3.5-5.2); Alkaline Phosphatase 46 IU/L (40-130); Anion Gap 13.1 (5-19); Aspartate Amino Transferase 20 U/L (0-40); Blood Urea Nitrogen 9 mg/dL (6-20); Calcium 9.6 mg/dL (8.5-10.5); Carbon Dioxide 27 mmol/L (22-29); Chloride 105 mmol/L (98-107); Globulin 1.8 g/dL (1.3-4.6); Glucose 107 mg/dL (74-109); Magnesium 1.9 mg/dL (1.7-2.3); Phosphorus 3.9 mg/dL (2.5-4.5); Potassium 4.1 mmol/L (3.5-5.1); Sodium 141 mmol/L (136-145); Total Bilirubin 0.8 mg/dL (0.15-1.2); Total Protein 6.1 g/dL (6.6-8.7)
[2019-08-17] MEDS: amoxicillin-clav 875-125 mg Tablet 1 TAB PO ×2 (06:30→10:11)
--- NOTE | 2019-08-17 06:54 | PC.NURSE ---
SHIFT SUMMARY PT HAS REMAINED ALERT AND ORIENTATED. PT HAS NOT HAD ANY WITHDRAWAL SYMPTOMS. PT LUNGS REMAIN CLEAR. PT HAS NOT HAD ANY OUTBURSTS. PT HAS NOT HAD ANY COMPLAINTS OF NAUSEA OR VOMITING. PT IS HAVING PO INTAKE. PT HAS HAD ADEQUATE URINE OUTPUT.
--- NOTE | 2019-08-17 12:21 | P.DS_ITS ---
Discharge Providers Date of Admission: 08/14/19 21:46 Date of Discharge: 08/17/19 Attending Provider at Admission: Rinku Nguyen MD Attending Provider at Discharge: Glen Patten MD Diagnoses at Discharge Discharge Diagnosis (1) Respiratory failure: Status: Acute (2) Unresponsive: Status: Acute (3) Depression: Status: Acute (4) Alcohol abuse: Status: Acute (5) Drug overdose: Status: Acute Reason for Visit Reason for Visit: Reason For Visit: OD, 96 HR HOLD Hospital Course Discharge Summary: This is a 24-year-old male with no significant past medical history who was brought in due to concerns of altered mental status secondary to alcohol and baclofen poisoning. Due to altered mental status, and an inability to maintain airway, patient was admitted intubated in the ER, placed on a ventilator, transferred to the intensive care unit. Patient was admitted for acute respiratory failure secondary to alcohol and baclofen poisoning, and aspi ration pneumonia. Poison control was contacted, who advised of conservative management. Patient clinically did well, was extubated successfully. 24 hours before discharge, patient was doing well, saturating high 90s on room air, no significant cough, no shortness of breath. Patient was discharged on 7 remaining days of Augmentin. Patient recently was grieving the loss of his grandmother, whom he was very close with, stated that he was using alcohol to cope. He denied feeling depressed. Denied suicidal or homicidal ideation. Denied this being a suicide attempt. Patient was seen by psychiatry who felt that this was not a suicide attempt, patient was not clinically depressed, likely had alcohol abuse disorder, and should follow-up with [facility] as outpatient. Patient was advised to abstain from alcohol. Patient was advised to not mix muscle relaxants and any other medications with alcohol. Advised to not use muscle relaxants before and during work. 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 For his sciatica pain, patient should follow-up with his primary care provider, for better options. Physical Exam Const: COMMON NORMALS: no apparent distress and oriented x3 ORIENTATION/CONSCIOUSNESS: Yes awake, Yes oriented to person, Yes oriented to place and Yes oriented to time HENMT: COMMON NORMALS: normocephalic HEAD & SCALP: normocephalic Eye: COMMON NORMALS: PERRL PUPIL: Yes PERRL Neck/C-Spine: COMMON NORMALS: no lymphadenopathy and no JVD Lymph: LYMPHATIC: no lymphadenopathy noted Chest: COMMONS NORMALS: inspection of chest normal Resp: COMMON NORMALS: clear to auscultation bilaterally AUSCULTATION: clear to auscultation bilaterally Cardio: COMMON NORMALS: no JVD, regular rate, regular rhythm, S1 normal heart sound and S2 normal heart sound RATE: regular rate RHYTHM: regular rhythm HEART SOUNDS: S1 normal and S2 normal GI: COMMON NORMALS: normal to inspection, nondistended, normoactive bowel sounds, soft to palpation, non-tender and no hepatosplenomegaly PALPATION: Yes soft and Yes no hepatosplenomegaly Extremity: COMMON NORMALS: normal to inspection, full ROM, normal capillary refill and no clubbing, cyanosis or edema Neuro: COMMON NORMALS: oriented x3, CN's II-XII intact bilaterally, moves all extremities and no focal motor deficits SENSORIUM/ORIENTATION: Yes oriented to person, Yes oriented to place and Yes oriented to time Psych: COMMON NORMALS: mental status grossly normal, thought process normal, cooperative, denies hallucinations, denies homicidal ideation and denies suicidal ideation THOUGHT PROCESS: normal thought process ATTENTION/CONCENTRATION: Yes attention grossly intact and Yes concentration grossly intact MEMORY/COGNITION: Yes memory grossly intact and Yes cognition grossly intact INSIGHT: insight good JUDGEMENT: judgment good Urinary Catheter Management^: Montez Latex Free: Cath Placed During This Visit: no Montez Latex: Cath Placed During This Visit: no Discharge Data Data Completed and Pending: Completed Studies During Hospitalization Category Date Time Status CT head wo con* 7 [id number] Urgent Cat Scan 08/14/19 20:47 Completed XR chest 1V marcelo ble [id number] Routine Exams 08/16/19 07:00 Completed XR chest 1V marcelo ble [id number] Stat Exams 08/14/19 20:47 Completed Labs from last 24 hours 08/17/19 08/17/19 04:37 04:37 WBC 6.9 RBC 4.44 Hgb 14.1 Hct 40.7 L MCV 91.7 MCH 31.8 MCHC 34.6 RDW 11.0 L Plt Count 151 MPV 9.5 Neut % (Auto) 63.8 Lymph % (Auto) 20.8 [place] % (Auto) 11.7 Eos % (Auto) 3.1 Baso % (Auto) 0.3 Neut # (Auto) 4.4 Lymph # (Auto) 1.4 [place] # (Auto) 0.8 Eos # (Auto) 0.2 Baso # (Auto) 0.0 Nucleated RBC % (a uto) 0 Nucleated RBCs # 0.0 Sodium 141 Potassium 4.1 Chloride 105 Carbon Dioxide 27 Anion Gap 13.1 BUN 9 Creatinine 0.7 GFR Calculation 141.0 H Glucose 107 Calcium 9.6 Phosphorus 3.9 Magnesium 1.9 Total Bilirubin 0.8 AST 20 ALT 18 Alkaline Phosphata se 46 Total Protein 6.1 L Albumin 4.3 Globulin 1.8 Vitals: Last Vital Signs Temp 99.4 F 08/17/19 02:00 Pulse 48 L 08/17/19 07:30 Resp 14 08/17/19 07:30 BP 112/64 08/17/19 10:59 Pulse Ox 97 08/17/19 07:30 Discharge Plan Discharge Patient Disposition: Home, Self-Care Condition: Stable Prescriptions: New amoxicillin-pot clavulanate 875-125 mg Tablet 1 tab PO BID 7 Days Qty: 14 RF: 0 No Action No Known Home Medications RF: 0 Discharge Orders: Discharge Order (Routine); Ordered 08/17/19 Ordered By: Glen Patten Referrals: [facility], [Staff Physician] - 1 month Discharge Diet: Regular Discharge Activity: Resume usual activity Patient Instructions: Grief and Loss (DC), Abuse of Alcohol (DC) Activity Restrictions/Additional Instructions: -Please use antibiotics as prescribed -Please follow-up with primary care in 1 week -Please abstain from alcohol -Do not mix alcohol with the muscle relaxer -Do not drink alcohol or use muscle relaxers, nor mix them, before or during work or after work, do not operate heavy machinery under the influence -Please follow-up with primary care for sciatica, and lower back pain Discharge Date/Time: 08/17/19 11:16 Discharge Attestations Time Spent in Discharge Care*: less than 30 min Quality Metrics Clinical Quality Measures During this hospital stay, did patient experience: None Coding Level of Care Code Acute Manager Digital Ad Operations for Emilyg Fwd Diagnoses Respiratory failure J96.90 Unresponsive R41.89 Depression F32.9 Alcohol abuse F10.10 Drug overdose T50.901A
== END 2019-08-17 11:16 | disposition home or self-care (01) | DRG 917 ==
LOC: ER 22:15 → ICU 22:16
PROVIDERS: Admitting Provider Internal Medicine; Emergency Provider Emergency Medicine; Family Provider Internal Medicine; Visit Provider Family Medicine
DX: T42.8X2A Poisoning by antiparkinsonism drugs and other central muscle-tone depressants, intentional self-harm, initial encounter (principal); J69.0 Pneumonitis due to inhalation of food and vomit; J96.90 Respiratory failure, unspecified, unspecified whether with hypoxia or hypercapnia; Y92.009 Unspecified place in unspecified non-institutional (private) residence as the place of occurrence of the external cause; F10.129 Alcohol abuse with intoxication, unspecified; F32.9 Major depressive disorder, single episode, unspecified; Y90.6 Blood alcohol level of 120-199 mg/100 ml; F17.210 Nicotine dependence, cigarettes, uncomplicated
CPT/HCPCS: 12345; 36415; 36416; 51702; 70450; 71045; 80053; 80307; 81001; 82550; 82803; 82962; 83735; 84100; 84145; 85025; 85610; 85730; 86140; 87070; 87205; 94002; 94799; 96360; 96372; 96374; 99285; C9113; J0330; J1650; J1953; J2060; J2543; J2704; J3010; J3411; J3490; J7030

== ENCOUNTER → 2024-09-26 16:19 | Outpatient (BNVA) | payer BC, SELFPAY | PROVIDERS: PCP Nurse Practitioner; Visit Provider Nurse Practitioner | DX: Z20.2 Contact with and (suspected) exposure to infections with a predominantly sexual mode of transmission (principal) | CPT/HCPCS: 86803; 87491; 87591; 87806 ==

== ENCOUNTER → 2024-12-03 16:40 | Outpatient (BNVA) | payer BC, SELFPAY | PROVIDERS: PCP Nurse Practitioner; Visit Provider Nurse Practitioner | DX: Z20.2 Contact with and (suspected) exposure to infections with a predominantly sexual mode of transmission (principal) | CPT/HCPCS: 86803; 87806 ==

== ENCOUNTER → 2025-07-01 13:45 | Outpatient (BNVA) | payer BC, SELFPAY | PROVIDERS: PCP Nurse Practitioner | DX: F33.2 Major depressive disorder, recurrent severe without psychotic features (principal) | CPT/HCPCS: 80053; 80061; 83036; 84443; 85025 ==